=== PATIENT | female | born 1940 | race Caucasian/White ===

== ENCOUNTER → 2017-09-09 | Outpatient (CLI) | payer OTHER ==
[~2017-09-09] MED LIST: ALEVE220 M1 PO; B-100 COMPLEX1 EAC1 PO; CALCIUM 600 MG1 EAC2 PO; CLEOCIN HCL150 MG; DOXYCYCLINE 10100 M1; FISH OIL 1,0001 EAC5 PO; FOSAMAX PLUS D1 EACH PO; GINSENG EXTRACT50 MG PO; HYDROCODON-ACE1 EAC7 PO; IBUPROFEN 600600 M1 PO; NORCO 5-325 TA1 EACH PO; ODORLESS GARLI500 MG PO; OMEPRAZOLE 20 M20 M1 PO; PREDNISOLONE 5 M5 M1 PO; PRIMROSE OIL PO; SIMVASTATIN20 MG; VICODIN 5-5001 EACH; ZOCOR40 MG PO; ZOFRAN ODT4 MG PO
== END ==
LOC: RAD 10:56
DX: Z12.31 Encounter for screening mammogram for malignant neoplasm of breast (principal)

== ENCOUNTER → 2018-10-28 | Outpatient (CLI) | payer OTHER | LOC: RAD 01:20 | DX: Z12.31 Encounter for screening mammogram for malignant neoplasm of breast (principal) ==

== ENCOUNTER → 2020-03-06 | Outpatient (CLI) | payer OTHER | LOC: RAD 10:23 | PROVIDERS: ATTEND Internal Medicine | DX: Z12.31 Encounter for screening mammogram for malignant neoplasm of breast (principal); M81.0 Age-related osteoporosis without current pathological fracture; M15.3 Secondary multiple arthritis; M85.88 Other specified disorders of bone density and structure, other site ==